=== PATIENT | male | born 1950 | race African-American/Black ===

== ENCOUNTER 2019-01-10 21:58 | Emergency (ER) | payer OTHER ==
[~2019-01-10 21:58] MED LIST: Magnevist 469MG/ML 20 ML VIAL ONE
--- NOTE | 2019-01-10 23:41 | RAD ---
Exam: 1 view abdomen HISTORY: Evaluate PEG tube placement FINDINGS: Atherosclerosis of the aorta. Normal cardiac silhouette. Visualized lung parenchyma suggest s chronic change There is opacification of the stomach with contrast administered via a percutaneous gastric feeding t ube which appears be appropriately positioned. Vascular stent is noted IMPRESSION: Appropriate positioning of a percutaneous gastric feeding tube with resultant contrast op acification of the stomach Transcribed Date/Time: 01/10/2019 11:56 PM
== END 2019-01-11 02:10 ==
LOC: ERS 21:58
DX: Z71.1 Person with feared health complaint in whom no diagnosis is made (principal); I12.9 Hypertensive chronic kidney disease with stage 1 through stage 4 chronic kidney disease, or unspecified chronic kidney disease; N18.9 Chronic kidney disease, unspecified; K21.9 Gastro-esophageal reflux disease without esophagitis; M19.90 Unspecified osteoarthritis, unspecified site; E03.9 Hypothyroidism, unspecified; E78.5 Hyperlipidemia, unspecified; E78.00 Pure hypercholesterolemia, unspecified; F20.9 Schizophrenia, unspecified; Z79.899 Other long term (current) drug therapy; Z79.01 Long term (current) use of anticoagulants
CPT/HCPCS: 74018; A9579

== ENCOUNTER 2019-02-10 09:17 | Inpatient (IN) | payer OTHER ==
--- NOTE | 2019-02-10 10:11 | RAD ---
Abdomen one view HISTORY: PICC replacement. COMPARISON: 01/10/2019. FINDINGS: Radiopaque feeding catheter overlies the left upper quadrant. Contrast material is present within the gastric fundus and immediately adjacent to the internal balloon. There is gaseous distention of the colon. Some contrast material at the hepatic flexure of the colon. Consistent with contrast placement from last night. Vascular stent over the left iliac vessels. Findings were called to Dr. Leo in the emergency department at 1005 hours.
--- NOTE | 2019-02-10 11:22 | CT ---
CT abdomen and pelvis noncontrast HISTORY: Malpositioned and repositioning of peg tube. COMPARISON: [place] CT from 02/09/2019. FINDINGS: Mild atelectasis at each lung base. Prominent calcification throughout the arterial structu res. Left iliac artery stent. Contrast material within the stomach and throughout the bowel. No evidence of bowel obstruction. Left upper quadrant percutaneous feeding catheter extends into the abdomen with the retention balloon intact. A small amount of radiopaque contrast is within the tract surrounding the catheter in the ant erior abdominal wall. Adjacent hemostasis clips noted. Hyperdense stones within the gallbladder lumen. No free air or free fluid within the abdomen. Lack of contrast limits evaluation of the soft tissues. Urinary bladder decompressed by a Rowe catheter. Large area of ulceration posterior to the sacrum. Pagetoid changes of the pelvis. IMPRESSION: Left upper quadrant percutaneous feeding catheter is now in good position. Small amount o f contrast along the tract of the anterior abdominal wall may be related to recent injection with previous malposition. Cholelithiasis. Atherosclerosis. Findings were called to Dr. Leo in the emergency department at 1110 hours. Code CR.
--- NOTE | 2019-02-10 13:08 | RAD ---
XR Chest 1 View Portable HISTORY: Concern for CHF COMPARISON: None FINDINGS: The heart size is normal. The lungs are without focal areas of consolidation, pneumothorax or pleural effusions. There is a right subclavian central venous catheter with tip in the projection of the cavoatrial junction. There is elevation of the left hemidiaphragm with minimal adjacent atelectatic change. IMPRESSION: No radiographic evidence of acute cardiopulmonary process.
[2019-02-10 13:40] LABS: Anion Gap 10 mmol/L (10-20); BUN (Urea Nitrogen) 14 mg/dL (8.4-25.7); Calc. Creatinine Clearance 0 mL/min (70-130); Calcium 8.3 mg/dL (7.8-10.44); Carbon Dioxide 24 mmol/L (23-31); Chloride 103 mmol/L (98-107); Estimated GFR-MDRD 82; Glucose 84 mg/dL (80-115); Sodium 133 mmol/L (136-145)
--- NOTE | 2019-02-10 13:50 | HP ---
HISTORY OF PRESENT ILLNESS: Mr. Romero is a 68-year-old black man. He was transferred to this facility from another facility because of hyponatremia. Initially, the patient went to another facility with complaint of abdominal pain , was transferred here. He was noticed to have malfunction in the gastrostomy tube. The tube was fixed by the ER physician. He was later noticed to have a low serum sodium, for which the patient is being admitted. The patient cannot give any information. History is obtained from the nurses and also his medical record. He is currently under police custody. He has some degree of altered mental status. He is not coherent at this time. PAST MEDICAL HISTORY: He is known to have a history of hypertension, hyperlipidemia, chronic kidney disease, gastroesophageal reflux disease, peripheral vascular disease, and hypothyroidism. PAST SURGICAL HISTORY: Remarkable for bilateral below-knee amputation and also he has a G-tube placement. PSYCHIATRIC HISTORY: Remarkable for schizophrenia. SOCIAL HISTORY: His social history is not available at this time. His smoking and drinking habit and drug use history is not available. MEDICATIONS: Prior to admission, he was on; 1. Amlodipine. 2. Atorvastatin. 3. Carvedilol. 4. Plavix. 5. Ferrous sulfate. 6. Fluoxetine. 7. Lactulose. 8. Lisinopril. 9. Osmolite. 10. Ranitidine. 11. Multivitamin. 12. Bactrim DS. 13. Cyanocobalamin. REVIEW OF SYSTEMS: Cannot be obtained as the patient cannot cooperate. PHYSICAL EXAMINATION: GENERAL: At the current time, he is alert, responsive, and not cooperating. VITAL SIGNS: His latest vital signs show a temperature of 98.2, pulse rate 71, respiratory rate 18, and blood pressure 112/61. HEENT: His head is normocephalic and atraumatic. Both his pupils are equal and reactive. Ears and nose are normal. His oral mucosa is dry. However, as mentioned earlier, he has a G-tube. We could not see his pharyngeal area. NECK: Supple. There is no distention of the jugular vein. No lymphadenopathy felt. Thyroid gland not palpable. There is no carotid bruit. CHEST: Symmetrical with regular S1 and S2. LUNGS: Clear. ABDOMEN: Soft. Bowel sounds decreased. There is a G-tube in place. He has bilateral BKA stump wounds and also he has some inguinal wounds and also sacral decubitus. NEUROLOGIC: He moves all extremities. LABORATORY DATA: There is no labs available at this time in this facility. ASSESSMENT AND PLAN: This is a 68-year-old black man with history of schizophrenia, hypertension, hyperlipidemia, chronic kidney disease, gastroesophageal reflux disease, peripheral vascular disease, and hypothyroidism, who is being admitted because of hyponatremia. It is very difficult at this time to assess his hyponatremia. He does have some edema in the stump. We will check his chest x-ray to exclude congestive heart failure. We will give him low-dose normal saline and at this time, in view of his history of the chronic kidney disease, which we do not know the baseline, urine lytes may not be accurate. We will consult Nephrology for further aid for better input. The patient will be admitted to the medical floor. We will check his electrolyte and resume his medications later. Job ID: [id number] MTDD
[2019-02-10 13:58] LABS: Free T4 (Free Thyroxine) 0.91 ng/dL (0.70-1.48); Thyroid Stimulating Hormone 0.9887 uIU/mL (0.35-4.94)
[2019-02-10 14:23] LABS: Bilirubin Negative (Negative); Blood, Urine Negative (Negative); Clarity Turbid (Clear); Glucose, Urine (Dipstick) Normal (Negative); Leukocyte 500 Leu/uL (Negative); Nitrite Negative (Negative); Protein, Urine (Dipstick) 30 mg/dL (Neg-Trace); Squamous Epithelial None Seen HPF (0-3); Urobilinogen Normal mg/dL (Less than 2); WBC/HPF Greater than 50 HPF (0-3); Yeast-Budding 2+ HPF (None Seen)
[2019-02-10 14:30] LABS: RBC/HPF 0-3 HPF (0-3)
[2019-02-10 14:31] LABS: Bacteria/HPF 2+ HPF (None Seen)
[2019-02-10] MEDS: Sodium Chloride 0.9% 1,000 ML IV SCH (16:32)
--- NOTE | 2019-02-10 23:07 | CON ---
DATE OF CONSULTATION: 02/10/2019 CONSULTING PHYSICIAN: Tali Villaseñor MD REASON FOR CONSULTATION: Hyponatremia. REASON FOR ADMISSION: Abdominal pain. HISTORY OF PRESENT ILLNESS: This is a 68-year-old male with history of hypertension, hyperlipidemia, CKD, came to the hospital with above complaints and was found to have hyponatremia. Nephrology was consulted. No fever or chills. No nausea. The patient is not able to have a good conversation. PAST MEDICAL HISTORY: Positive for hypertension, hyperlipidemia, CKD, GERD, peripheral vascular disease, and hypothyroidism. PAST SURGICAL HISTORY: Bilateral below-knee amputation, and G-tube. HOME MEDICATIONS: Reviewed. ALLERGIES: NO KNOWN DRUG ALLERGIES. SOCIAL HISTORY: No smoking, alcohol, or illicit drug abuse. FAMILY HISTORY: No history of kidney disease. REVIEW OF SYSTEMS: Could not be obtained. PHYSICAL EXAMINATION: GENERAL: This is a cachectic male, in no apparent distress. VITAL SIGNS: Temperature 97.7, pulse 70, respiratory rate 18, blood pressure 115/75. HEENT: Atraumatic, normocephalic. NECK: Supple. CV: S1, S2 heard. RESPIRATORY: Clear. GI: Abdomen is soft. MUSCULOSKELETAL: No edema. DERMATOLOGIC: Decubitus present. NEUROLOGICAL: Confused. LABORATORY DATA: Sodium is 133, potassium 4.0, BUN is 14, and creatinine is 1.08. ASSESSMENT AND PLAN: 1. Hyponatremia. Continue hydration. 2. Edema, controlled. 3. History of hypertension. 4. Plan to continue on IV fluids and monitor labs. We will follow. Thank you for the consult. Job ID: [id number]
[2019-02-11 06:31] LABS: Anion Gap 12 mmol/L (10-20); BUN (Urea Nitrogen) 11 mg/dL (8.4-25.7); Calc. Creatinine Clearance 55 mL/min (70-130); Calcium 7.9 mg/dL (7.8-10.44); Carbon Dioxide 21 mmol/L (23-31); Chloride 106 mmol/L (98-107); Estimated GFR-MDRD Greater than 90; Sodium 135 mmol/L (136-145)
[2019-02-11 06:46] LABS: Glucose 57 mg/dL (80-115)
[2019-02-11] MEDS: Sodium Chloride 0.9% 1,000 ML IV SCH ×2 (08:32→23:54)
[2019-02-11] MEDS ORDERED: Prevnar 13-Val Conj/PF 0.5 ML SYRINGE IM ONE (09:00)
[2019-02-11] MEDS ORDERED: FLU VACC TS2019-20(65YR UP)/PF 180 MCG/0.5 ML SYRINGE IM ONE (09:00)
[2019-02-11] MEDS ORDERED: GASTROGRAFIN 30 ML BOT ONE (16:40)
--- NOTE | 2019-02-11 16:51 | PRG ---
DATE OF SERVICE: 02/11/2019 SUBJECTIVE: Patient was seen and examined at bedside and overnight events noted. Patient denies any shortness of breath or chest pain or palpitation. No history of nausea or vomiting or diarrhea or fever or chills or cramps. OBJECTIVE: GENERAL: This is a cachectic male, in no apparent distress. VITAL SIGNS: Temperature 98.1. Heart rate 94. Respiratory rate 18. Blood pressure 159/69. HEENT: Atraumatic, normocephalic. Oral mucosa is moist NECK: Supple. CARDIOVASCULAR: S1, S2 heard. Rate and rhythm regular. RESPIRATORY: Clear to auscultation. GASTROINTESTINAL: Abdomen is soft. MUSCULOSKELETAL: No tenderness. No edema. DERMATOLOGIC: No skin rash. NEUROLOGIC: Alert and awake and oriented X3. No focal neurologic deficits. Moving all the extremities. PSYCHIATRIC: Mood and affect normal. LABORATORY DATA: Sodium 135, creatinine is 0.7. ASSESSMENT AND PLAN: 1. Hyponatremia, better with hydration. 2. Edema, controlled. 3. Hypertension. 4. Anemia of chronic disease. 5. Weak appetite. 6. Failure to thrive. 7. Continue to maintain adequate hydration. I will sign off. Please call back with any questions. Monitor sodium. Job ID: [id number]
--- NOTE | 2019-02-11 16:58 | RAD ---
ABDOMEN ONE VIEW: HISTORY: PEG tube check. FINDINGS: Contrast appears to opacify the stomach via a percutaneous gastric feeding tube. Additional contrast is noted in small bowel loops and scattered throughout the colon, likely from previous injection of contrast on 02/10/2019. Redemonstration of a vascular stent. IMPRESSION: Contrast opacifying the percutaneous endoscopic gastrostomy tube as described above. Transcribed Date/Time: 02/11/2019 5:51 PM
[2019-02-11 17:12] VITALS: BMI 48.8
--- NOTE | 2019-02-11 18:49 | PDOC.HOSPP ---
- Subjective Encounter Date: 02/11/19 Encounter Time: 13:00 Subjective: The patient says he doesn't feel good, unable to states what is bothering him but says he feels discomfort. Denies chest pain, denies shortness of breath. PEG tube noted to be leaking. trauma director called from [facility], states that tube has leaked and been infected multiple times and requested that a new PEG tube be placed at a different site. GI was contacted and tube was thought to be too small and changed to a larger tube. Recommended not removing PEG tube since this would cause a hole to form. - Objective Vital Signs & Weight: Vital Signs (12 hours) Temp Pulse Resp BP Pulse Ox 02/11/19 16:00 97.8 F 99 18 181/68 H 98 02/11/19 12:00 98.0 F 98 20 156/68 H 97 02/11/19 08:00 98.1 F 94 18 159/69 H 97 Weight Admit Weight 89 lb 15.178 oz Weight 89 lb 15.178 oz I&O: 02/10/19 02/11/19 02/12/19 06:59 06:59 06:59 Intake Total 550 Output Total 500 500 Balance 50 -500 Result Diagrams: 02/11/19 05:45 Additional Labs: Accuchecks 02/11/19 02/11/19 12:01 07:23 POC Glucose 93 92 Hospitalist ROS - Review of Systems Constitutional: denies: fever, chills Cardiovascular: denies: chest pain, palpitations - Medication Medications: Active Medications Generic Name Dose Route Start Last Admin Trade Name Freq PRN Reason Stop Dose Admin Sodium Chloride 1,000 mls @ 50 mls/hr 02/10/19 13:00 02/11/19 08:32 Normal Saline 0.9% IV 1,000 mls .Q20H KENNY Administration - Exam General Appearance: NAD, awake alert General - other findings: moaning Eye: PERRL, anicteric sclera ENT: normocephalic atraumatic, no oropharyngeal lesions Neck: supple, no JVD Heart: RRR, no murmur, no gallops, no rubs Respiratory: CTAB, no wheezes, no rales, no ronchi Gastrointestinal: soft, non-tender, non-distended Gastrointestinal - other findings: PEG tube noted to be leaking serous fluid Extremities: no cyanosis, no clubbing, no edema Extremities - other findings: bilateral above the knee amputations Skin: normal turgor, no lesions, no rashes Neurological: normal sensation to touch Musculoskeletal: normal tone, normal strength, no muscle wasting Hosp A/P - Plan This is 68 year old male with GERD, hypertension, CKD who presented with PEG tube malfunction, s/p changing in the ER, patient admitted for hyponatremia PEG tube leaking - patient had tube changed in the ER, however was still leaking, therefore changed to a large tube this afternoon - X ray shows contrast in the area, will monitor PEG tube function overnight Possible UTI -UA shows 500 leukocyte esterase, will send urine culture and give a dose of bactrim empirically Hyponatremia - improved, sodium up to 135 - continue tube feeds PVD s/p bilateral AKA - will consult general surgery since bone appears to be protruding from ulcer Dispo: likely d/c tomorrow
[2019-02-11] MEDS: Sulfamethoxazole/Trimethoprim 160 MG in Dextrose 5% in Water 250 ML IVPB SCH (21:31)
[2019-02-11] MEDS ORDERED: Morphine 2 MG/ML SYRINGE SLOW IVP SCH (23:30)
[2019-02-12 05:36] LABS: Mean Corpuscular HGB CONC 30.7 g/dL (32.0-36.0); Mean Corpuscular Hemoglobin 28.2 pg (27.0-31.0); Mean Corpuscular Volume 91.8 fL (78.0-98.0); Platelet Count 257 thou/uL (130-400); Red Blood Cell (RBC) Count 2.85 mill/uL (4.70-6.10); White Blood Cell (WBC) Count 4.9 thou/uL (4.8-10.8)
[2019-02-12 05:59] LABS: Anion Gap 12 mmol/L (10-20); BUN (Urea Nitrogen) 5 mg/dL (8.4-25.7); Calc. Creatinine Clearance 65 mL/min (70-130); Carbon Dioxide 20 mmol/L (23-31); Chloride 108 mmol/L (98-107); Estimated GFR-MDRD Greater than 90; Glucose 73 mg/dL (80-115); Potassium 3.5 mmol/L (3.5-5.1); Sodium 136 mmol/L (136-145)
--- NOTE | 2019-02-12 07:48 | CON ---
DATE OF CONSULTATION: 02/11/2019 REASON FOR CONSULTATION: Request for PEG replacement. HISTORY OF PRESENT ILLNESS: Mr. Romero is a 68-year-old with history of hypertension, chronic kidney disease, hyperlipidemia, who was transferred from [facility] for requested replacement of a PEG tube. Apparently, that leaks a lot around it and it has had to be replaced several times because it gets clogged. The hospitalist tells me that the medical oncology physician at the custodial requested that we take out the PEG and put a new PEG in a different spot. Apparently, there has maybe been some history of infections related to the PEG tube site. Presently, the PEG that is in place is a 16-Malawian, apparently replaced by the emergency room doctor in [place] before he was sent here. The patient is unable to add any history. PAST MEDICAL HISTORY: 1. Hypertension. 2. Hyperlipidemia. 3. Chronic kidney disease. 4. Reflux. 5. Peripheral vascular disease. 6. Hypothyroidism. Reviewing some of the custodial records that has been sent. He has a history of dementia, he has decubitus ulcers as well, history of depression, history of anemia, and blindness. MEDICATIONS: 1. Carvedilol. 2. Plavix. 3. B12. 4. Ferrous sulfate. 5. Fluoxetine. 6. Lactulose. 7. Lisinopril. 8. Morphine. 9. Osmolite. 10. Ranitidine. 11. Sulfamethoxazole. 12. Vitamin C. SOCIAL HISTORY: He is incarcerated. PSYCHIATRIC HISTORY: Schizophrenia. PAST SURGICAL HISTORY: 1. Bilateral knee amputations. 2. NG tube placement. REVIEW OF SYSTEMS: Unable to be obtained. PRESENT MEDICATIONS: Normal saline at 50 an hour. PHYSICAL EXAMINATION: GENERAL: The patient is contracted. He has decubitus ulcers. He has malnutrition with temporal wasting and muscle wasting. VITAL SIGNS: Temperature is 98, pulse is 98, blood pressure is 155/68. HEENT: Oropharynx without lesions. NECK: Supple without adenopathy. LUNGS: Clear. HEART: Regular rhythm without clicks or murmurs. ABDOMEN: Soft and nontender. The PEG tube site with a very small 16-Malawian PEG coming out of the tube that has bubbles draining around, but no pus. There is no evidence of infection or discharge or abscess. EXTREMITIES: Bilateral BKA. LABORATORY DATA: Sodium 135, potassium 4, BUN and creatinine 11 and 0.72, glucose 57 to 84. Outside labs from 02/10: Albumin was 2.3, calcium 8, alkaline phosphatase 86, AST and ALT 10 and 14, globulin 3.8, CK-MB 2.5. White count 6, hemoglobin 7.5, and platelet count 238. KUB from 02/09 at the outside hospital shows PEG tube to be in good position, fundus of the stomach, that was at an outside facility. CAT scan here on 02/10/2019 shows atelectasis, prominent vascular calcifications. Left iliac artery stent, contrast material in the stomach and throughout the bowel without evidence of obstruction. PEG tube is in proper placement in the stomach. ASSESSMENT: The percutaneous endoscopic gastrostomy tube has had 2 issues. One is complains of multiple malfunctions, becoming clogged, that is an issue of how to use by that staff that uses it. The other possibly could be that with its replacement status, it could be sliding into the pylorus, giving the impression of obstruction. This could be remedied by placing a tape bumper to keep the PEG from sliding into the plastic bumper into the gastric lumen and into the duodenum and also by being used appropriately by the nurses and people were caring for this patient. The next issue has been drainage around the percutaneous endoscopic gastrostomy tube site, that is not going to probably be any better with placing a new percutaneous endoscopic gastrostomy tube as he is very malnourished and has poor wound healing as evidenced by his multiple decubitus. If this percutaneous endoscopic gastrostomy tube is removed the tract, probably will not close, and subsequently replaced percutaneous endoscopic gastrostomy will have the same issues with lack of skin around the tract. My recommendation would be to replace the percutaneous endoscopic gastrostomy with a larger caliber replacement percutaneous endoscopic gastrostomy 20-Malawian and hopefully there would be less drainage with that. If that does not work, then surgical consultation will need to be obtained. RECOMMENDATIONS: Replace the PEG tube with a 20-Malawian PEG, confirm placement with x-ray and return him to his previous care site. Job ID: [id number]
--- NOTE | 2019-02-12 08:18 | OP ---
DATE OF PROCEDURE: 02/11/2019 PROCEDURE PERFORMED: PEG tube replacement. The 16-Kinyarwanda PEG tube, which was in the patient's PEG tube was desufflated, 20 mL of water. The PEG tube was gently removed from the tract, which seems to be patent without any inflammation, pus, or discharge. The new 20-Kinyarwanda tube was placed into it. Air was insufflated through the PEG and this seems to be auscultated in the stomach. The PEG tube balloon was inflated with 20 mL of sterile water, then brought back towards the anterior gastric wall. The bumper was then affixed to the abdomen, it was at 3 cm. PLAN: We will get an x-ray to confirm a PEG tube placement to make sure it is not in the colon or out of place. The PEG tube was affixed to the anterior abdominal wall by the bumper and tape to prevent PEG migration through the bumper. Job ID: [id number]
[2019-02-12] MEDS: Sulfamethoxazole/Trimethoprim 160 MG in Dextrose 5% in Water 250 ML IVPB SCH ×2 (08:52→21:49)
[2019-02-12] MEDS ORDERED: NACL IV SCH (09:45)
[2019-02-12] MEDS ORDERED: DEXTROSE IV SCH (09:45)
[2019-02-12] MEDS ORDERED: Pancrelipase DR 12000 1 CAP FS PRN (11:52)
[2019-02-12] MEDS ORDERED: Sodium Bicarbonate Tab 325 MG TAB PER TUBE PRN (11:52)
--- NOTE | 2019-02-12 15:23 | PDOC.HOSPP ---
- Subjective Encounter Date: 02/12/19 Encounter Time: 15:21 Subjective: The patient complains of some chest pain in the middle of his chest, states that it is dull. He says his chest pain started last night. He has some shortness of breath. No abdominal discomfort. Tube feeds had not been initiated yet per nursing staff but were started this afternoon. Surgical consult for stumps pending Urine culture positive for E coli overnight. - Objective Vital Signs & Weight: Vital Signs (12 hours) Temp Pulse Resp BP Pulse Ox 02/12/19 11:35 98.3 F 84 20 144/76 H 95 02/12/19 07:43 97.9 F 85 22 H 169/72 H 97 Weight Admit Weight 89 lb 15.178 oz Weight 89 lb 15.178 oz I&O: 02/11/19 02/12/19 02/13/19 06:59 06:59 06:59 Intake Total 550 890 30 Output Total 500 1150 Balance 50 -260 30 Result Diagrams: 02/12/19 05:18 02/12/19 05:18 Additional Labs: Accuchecks 02/12/19 02/12/19 02/11/19 11:42 04:00 19:33 POC Glucose 109 82 82 02/11/19 16:28 POC Glucose 80 Hospitalist ROS - Review of Systems Constitutional: denies: fever, chills Respiratory: denies: cough, dry - Medication Medications: Active Medications Generic Name Dose Route Start Last Admin Trade Name Freq PRN Reason Stop Dose Admin Sodium Chloride 1,000 mls @ 50 mls/hr 02/10/19 13:00 02/11/19 23:54 Normal Saline 0.9% IV 1,000 mls .Q20H KENNY Administration Trimethoprim/Sulfamethoxazole 250 mls @ 250 mls/hr 02/11/19 21:00 02/12/19 08 :52 160 mg/ Dextrose/Water IVPB 250 mls 0900,2100 KENNY Administration - Exam General Appearance: NAD, awake alert General - other findings: patient is laying in bed with arms handcuffed together Eye: PERRL, anicteric sclera Eye - other findings: some discharge coming from eyes ENT: normocephalic atraumatic, no oropharyngeal lesions Neck: supple, symmetric, no JVD Heart: RRR, no murmur, no gallops, no rubs Respiratory: CTAB, no wheezes, no rales, no ronchi Respiratory - other findings: no tenderness on chest Gastrointestinal - other findings: PEg tube with no leaking evident Extremities - other findings: pain when trying to lift up his arms Skin: normal turgor, no lesions, no rashes Neurological: cranial nerve grossly intact, normal sensation to touch, no focal deficits, no new deficit Musculoskeletal: normal tone, normal strength, no muscle wasting Psychiatric: normal affect, normal behavior, A&O x 3, oriented to person Hosp A/P - Plan This is 68 year old male with GERD, hypertension, CKD who presented with PEG tube malfunction, s/p changing in the ER, patient admitted for hyponatremia PEG tube leaking - resolved - patient had tube changed in the ER, however was still leaking, therefore changed to a large tube 1/6 - tube feeds started today, no leaking evident today Chest pain - will check EKG and troponins - could be positional due to how his arms are contracted across his chest from the cuffs E coli UTI -UA shows 500 leukocyte esterase, urine culture showing E coli - continue bactrim Hyponatremia -resolved - continue tube feeds PVD s/p bilateral AKA - general surgery consulted Dispo: troponins/ekg/surg consult
--- NOTE | 2019-02-12 18:03 | CON ---
DATE OF CONSULTATION: HISTORY OF PRESENT ILLNESS: Alberto Romero is a 68-year-old male, who is incarcerated. He was transferred here for dysfunction of his PEG tube. Dr. Salazar has exchanged his PEG tube and given his recommendations. I have been asked to see him regarding bilateral [id number] amputations with protruding femur. The patient is not a reliable historian. During this hospitalization, CAT scan has been obtained and abdominal x-ray has been obtained. The patient is noted to have gallstones, but no acute abdominal changes and NG tube to be in good position. He is not a reliable historian. ALLERGIES: LISTED NONE. MEDICATIONS: 1. Amlodipine. 2. Atorvastatin. 3. Carvedilol. 4. Plavix. 5. Ferrous sulfate. 6. Fluoxetine. 7. Lactulose. 8. Lisinopril. 9. Osmolite. 10. Ranitidine. 11. Multiple vitamins. 12. Bactrim. PAST MEDICAL HISTORY: 1. Hypertension. 2. Hyperlipidemia. 3. Chronic kidney disease. 4. GERD. 5. PVD. 6. Hypothyroidism. 7. Stroke. 8. Dysphagia. 9. PEG tube dependent. PAST SURGICAL HISTORY: 1. Bilateral [id number] amputations. 2. G-tube placement. PHYSICAL EXAMINATION: GENERAL: The patient is not reliably communicative. He does not answer questions appropriately. He has apparent arm contractures. He has a PEG tube in place. VITAL SIGNS: Temperature 98 degrees, heart rate 91, and blood pressure 170/84. LUNGS: Clear to auscultation. CARDIAC: Regular rate and rhythm without murmur or gallop. ABDOMEN: Soft and nontender. PEG tube in place. EXTREMITIES: Bilateral AKAs with protruding femur on both sides. No evidence of infection. No cellulitis. LABORATORY DATA: White count 4 and hemoglobin 8. Basic metabolic profile unremarkable. BUN 12 and creatinine 0.6. ASSESSMENT AND PLAN: The patient has chronically protruding femurs from both [id number] amputation stumps. This has been present for a long time, probably several years. There is no indication for immediate intervention. I will not plan that. I will see him as needed. He can be referred back to [facility], where he is incarcerated, and this can be addressed in the future should he develop problems. I am sure they have already evaluated this. I do not see a need for immediate intervention in this hospitalization. Job ID: [id number]
[2019-02-12] MEDS: Multivit, Chewable SF 1 TAB PER TUBE SCH (21:48)
[2019-02-12] MEDS: Famotidine 20 MG TAB PER TUBE SCH (21:49)
[2019-02-12] MEDS: Carvedilol 6.25 MG TAB PER TUBE SCH (21:49)
[2019-02-12] MEDS: Ascorbic Acid 500 mg Chewable Tablet PER TUBE SCH (21:49)
[2019-02-13] MEDS: Sodium Chloride 0.9% 1,000 ML IV SCH ×2 (02:20→21:12)
[2019-02-13] MEDS: NUTRITIONAL SUPPLEMENT PER TUBE SCH (02:21)
[2019-02-13 05:46] LABS: Hemoglobin 8.5 g/dL (14.0-18.0); Mean Corpuscular HGB CONC 31.4 g/dL (32.0-36.0); Mean Corpuscular Hemoglobin 28.6 pg (27.0-31.0); Mean Corpuscular Volume 91.2 fL (78.0-98.0); Mean Platelet Volume 6.7 fL (7.4-10.4); Platelet Count 282 thou/uL (130-400); RBC Distribution Width 14.9 % (11.5-14.5); Red Blood Cell (RBC) Count 2.98 mill/uL (4.70-6.10); White Blood Cell (WBC) Count 6.9 thou/uL (4.8-10.8)
[2019-02-13] MEDS: Famotidine 20 MG TAB PER TUBE SCH ×2 (08:46→20:13)
[2019-02-13] MEDS: Carvedilol 6.25 MG TAB PER TUBE SCH (08:46)
[2019-02-13] MEDS: Lisinopril 20 MG TAB PER TUBE SCH (08:46)
[2019-02-13] MEDS: Clopidogrel Bisulfate 75 MG TAB PER TUBE SCH (08:47)
[2019-02-13] MEDS: FLUoxetine HCl 20 MG CAP PER TUBE SCH (08:47)
[2019-02-13] MEDS: Ascorbic Acid 500 mg Chewable Tablet PER TUBE SCH ×2 (08:47→20:14)
[2019-02-13] MEDS: Sulfamethoxazole/Trimethoprim 160 MG in Dextrose 5% in Water 250 ML IVPB SCH (08:56)
[2019-02-13] MEDS ORDERED: Clopidogrel Bisulfate 75 MG TAB PER TUBE SCH (09:00)
[2019-02-13] MEDS ORDERED: Non-Formulary Item 1 EACH (Lisinopril [Lisinopril] 40 MG) PER TUBE SCH (09:00)
[2019-02-13] MEDS ORDERED: FLUoxetine HCl 20 MG CAP PER TUBE SCH (09:00)
[2019-02-13] MEDS ORDERED: Amlodipine 5 MG TAB PER TUBE SCH ×2 (09:00)
[2019-02-13] MEDS ORDERED: Amoxicillin/Potassium Clav 875 MG TAB PO SCH (10:15)
--- NOTE | 2019-02-13 11:55 | RAD ---
XR Shoulder Rt 2 View HISTORY: Right shoulder pain FINDINGS: No fracture or dislocation is identified.
--- NOTE | 2019-02-13 11:56 | RAD ---
XR Shoulder Lt 2 View HISTORY: Left shoulder pain FINDINGS: No fracture or dislocation is identified. Degenerative changes are present in the acromioclavicular j oint.
--- NOTE | 2019-02-13 13:01 | RAD ---
LEFT WRIST FRONTAL VIEW: 02/13/2019 PROVIDED CLINICAL HISTORY: Pain. FINDINGS: Shackle overlies and obscures the majority of the left wrist, limiting evaluation. Evaluation is also limited due to lack of an orthogonal view. No gross abnormality is apparent. IMPRESSION: Limited examination. POS: OFF
--- NOTE | 2019-02-13 14:58 | PDOC.HOSPP ---
- Subjective Encounter Date: 02/13/19 Encounter Time: 11:30 Subjective: THe patient is doing better. No chest pain, abdominal pain, palpitations, shortness of breath. REpeat EKG today showing persistent atrial fibrillation. Patient does not know if he has afib in the past or not. Unable to get hold of [facility]. THe patient complains of pain when I try to move his left wrist. Per penitentiary guards, patients arms always seem contracted. He complains of pain in his left shoulder. - Objective Vital Signs & Weight: Vital Signs (12 hours) Temp Pulse Resp BP BP Pulse Ox 02/13/19 11:30 97.7 F 80 20 150/77 H 100 02/13/19 10:55 70 20 159/73 H 100 02/13/19 08:47 104 H 195/96 H 02/13/19 08:46 195/96 H 02/13/19 08:42 98.3 F 104 H 20 195/96 H 97 02/13/19 08:41 97 Weight Admit Weight 89 lb 15.178 oz Weight 89 lb 15.178 oz I&O: 02/12/19 02/13/19 02/14/19 06:59 06:59 06:59 Intake Total 890 1190 60 Output Total 1150 1050 Balance -260 140 60 Result Diagrams: 02/13/19 05:23 02/12/19 05:18 Hospitalist ROS - Review of Systems Constitutional: denies: fever, chills Cardiovascular: denies: chest pain, palpitations - Medication Medications: Active Medications Generic Name Dose Route Start Last Admin Trade Name Karon PRN Reason Stop Dose Admin Amlodipine Besylate 5 mg 02/13/19 09:00 02/13/19 08:47 Norvasc PER TUBE 5 mg DAILY KENNY Administration Ascorbic Acid 500 mg 02/12/19 21:00 02/13/19 08:47 Vitamin C PER TUBE 500 mg BID KENNY Administration Carvedilol 6.25 mg 02/12/19 21:00 02/13/19 08:46 Coreg PER TUBE 6.25 mg BID KENNY Administration Clopidogrel Bisulfate 75 mg 02/13/19 09:00 02/13/19 08:47 Plavix PER TUBE 75 mg DAILY KENNY Administration Famotidine 20 mg 02/12/19 21:00 02/13/19 08:46 Pepcid PER TUBE 20 mg BID KENNY Administration Ferrous Sulfate 220 mg 02/12/19 15:00 02/13/19 14:47 Ferrous Sulfate PER TUBE 220 mg TID KENNY Administration Fluoxetine HCl 20 mg 02/13/19 09:00 02/13/19 08:47 Prozac PER TUBE 20 mg DAILY KENNY Administration Sodium Chloride 1,000 mls @ 50 mls/hr 02/10/19 13:00 02/13/19 02:20 Normal Saline 0.9% IV 1,000 mls .Q20H KENNY Administration Lactulose 30 gm 02/12/19 15:00 02/13/19 14:18 Lactulose PER TUBE Not Given TID KENNY Lisinopril 40 mg 02/13/19 09:00 02/13/19 08:46 Zestril PER TUBE 40 mg DAILY KENNY Administration Multivitamins 1 tab 02/12/19 21:00 02/12/19 21:48 Multivit, Chewable Sf PER TUBE 1 tab HS KENNY Administration - Exam General Appearance: NAD, awake alert Eye: PERRL, anicteric sclera ENT: normocephalic atraumatic, no oropharyngeal lesions Neck: supple, symmetric, no JVD, no thyromegaly Heart: RRR, no murmur, no gallops, no rubs Respiratory: CTAB, no wheezes, no rales, no ronchi Gastrointestinal: soft, non-tender Gastrointestinal - other findings: PEG tube in place with no leaking evident Extremities: no cyanosis, no clubbing, no edema Skin: normal turgor, no lesions, no rashes Neurological: cranial nerve grossly intact, normal sensation to touch, no focal deficits, no new deficit Hosp A/P - Plan Shoulder Xray right and left: no acute fracture or dislocation Left Wrist X ray: limited examination due to shackles, but no acute abnormality This is 68 year old male with GERD, hypertension, CKD who presented with PEG tube malfunction, s/p changing in the ER, patient admitted for hyponatremia PEG tube leaking - resolved - patient had tube changed in the ER, however was still leaking, therefore changed to a large tube 1/6 - tube feeds started with no issues Chest pain - resolved - troponins negative times three. Will transfer to telemetry due to afib on EKG - New onset atrial fibrillation - rate controlled. Appears to be persistent on two consecutive EKG. ECHO ordered , cardiology consult who recommended transferring to telemetry E coli UTI -UA shows 500 leukocyte esterase, urine culture showing E coli resistant to bactrim - switch to augmentin day 1 Shoulder pain/wrist pain - no acute abnormality on X ray - likely due to awkward arm positioning - will order PT Hyponatremia -resolved - continue tube feeds PVD s/p bilateral AKA - general surgery consulted, no further recommendations or procedures necessary Dispo: transfer to telemetry for monitoring of afib, cardiology consult
[2019-02-13] MEDS ORDERED: Carvedilol 6.25 MG TAB PO SCH (19:00)
[2019-02-13] MEDS: Multivit, Chewable SF 1 TAB PER TUBE SCH (20:13)
[2019-02-13] MEDS: Atorvastatin Calcium 20 MG TAB PER TUBE SCH (20:13)
[2019-02-13] MEDS: Amoxicillin/Potassium Clav 875 MG TAB PO SCH (20:14)
--- NOTE | 2019-02-13 21:29 | CON ---
DATE OF CONSULTATION: HISTORY OF PRESENT ILLNESS: Alberto Romero is a 68-year-old black male from the retirement in [place], where he apparently is on row. He was transferred here because of hyponatremia and malfunction of his gastrostomy tube. The patient cannot give any adequate history. He has been noted on medical floor to have rapid heart rate at times. EKG was obtained, which is interpreted by the computer as atrial fibrillation. However, it appears that he is in sinus rhythm with very frequent PACs and at times wandering atrial pacemaker. He has been transferred to telemetry for better monitoring of this. Rhythm strip continued to show sinus rhythm and at times wandering atrial pacemaker. PAST MEDICAL HISTORY: Hypertension, chronic kidney disease, GERD, peripheral vascular disease, hypothyroidism, hyperlipidemia. CURRENT MEDICATIONS: 1. Amlodipine 5 mg daily. 2. Augmentin. 3. Atorvastatin 20 mg daily. 4. Carvedilol 6.25 b.i.d. 5. Plavix 75 daily. 6. Pepcid 20 mg b.i.d. 7. Ferrous sulfate 220 mg t.i.d. 8. Prozac 20 mg daily. 9. Lactulose 30 t.i.d. 10. Lisinopril 40 mg daily. 11. Bactrim IV. ALLERGIES: NONE. PAST SURGICAL HISTORY: PEG tube placement and bilateral [id number] amputation with protruding femur from both stumps. SOCIAL HISTORY: Unobtainable. FAMILY HISTORY: Unobtainable. REVIEW OF SYSTEMS: Unobtainable. PHYSICAL EXAMINATION: VITAL SIGNS: Blood pressure 182/91, pulse of 99. HEENT: PERRL. CHEST: Clear. CARDIAC: S1 and S2 normal without any S3, S4, or murmurs. ABDOMEN: Normal bowel sounds without tenderness. EXTREMITIES: Revealed bilateral [id number] amputations with protruding femur from both stumps. NEUROLOGICAL: The patient will move extremities, but does not answer questions except with yes or no answers. LABORATORY DATA: EKG reveals sinus rhythm with wandering atrial pacemaker. Echocardiogram revealed study to be technically difficult. Ejection fraction was 55% to 60% with evidence of diastolic dysfunction, moderate mitral regurgitation , moderate aortic stenosis, moderate aortic regurgitation, and mild tricuspid regurgitation. Hemoglobin 8.5, hematocrit 27.2, white count 6900. Sodium 136, potassium 3.5, chloride 108, carbon dioxide 20, BUN 5, creatinine 0.61. Cardiac enzymes were unremarkable. His sodium on admission was 133. IMPRESSION: 1. Normal sinus rhythm and at times wandering atrial pacemaker. 2. Malfunctioning PEG tube, which has been resolved. 3. Hyponatremia, which is resolved. 4. Hypertension. 5. Hyperlipidemia. 6. History of schizophrenia. 7. History of gastroesophageal reflux disease. 8. History of peripheral vascular disease. 9. Hypothyroidism. PLAN: With patient's current blood pressure with systolics frequently in the 170s to 180s and heart rates in the 90s to 100s, I will double his carvedilol dose from 6.25 b.i.d. to 12.5 b.i.d. The dose of carvedilol will be gradually increased and some of his other antihypertensives may need to be reduced. The patient will be monitored. I will follow the patient with you. Job ID: [id number] MTDD
[2019-02-13] MEDS ORDERED: Amlodipine 5 MG TAB PO SCH (23:45)
[2019-02-14] MEDS: Sodium Chloride 0.9% 1,000 ML IV SCH ×2 (04:09→21:24)
[2019-02-14 05:11] LABS: Anion Gap 8 mmol/L (10-20); BUN (Urea Nitrogen) 21 mg/dL (8.4-25.7); Calc. Creatinine Clearance 70 mL/min (70-130); Calcium 7.9 mg/dL (7.8-10.44); Carbon Dioxide 24 mmol/L (23-31); Chloride 109 mmol/L (98-107); Estimated GFR-MDRD Greater than 90; Glucose 130 mg/dL (80-115); Magnesium 1.8 mg/dL (1.6-2.6); Potassium 3.6 mmol/L (3.5-5.1); Sodium 137 mmol/L (136-145)
[2019-02-14] MEDS ORDERED: Carvedilol 6.25 MG TAB PO SCH (08:00)
[2019-02-14] MEDS: Amoxicillin/Potassium Clav 875 MG TAB PO SCH (10:14)
[2019-02-14] MEDS: Famotidine 20 MG TAB PER TUBE SCH (10:17)
[2019-02-14] MEDS: Lisinopril 20 MG TAB PER TUBE SCH (10:17)
[2019-02-14] MEDS: FLUoxetine HCl 20 MG CAP PER TUBE SCH ×2 (10:18→10:22)
[2019-02-14] MEDS: Ascorbic Acid 500 mg Chewable Tablet PER TUBE SCH ×2 (10:18→21:23)
[2019-02-14] MEDS: Amlodipine 10 MG TAB PO SCH (10:19)
[2019-02-14] MEDS: Clopidogrel Bisulfate 75 MG TAB PER TUBE SCH (10:20)
--- NOTE | 2019-02-14 18:52 | PDOC.HOSPP ---
- Subjective Encounter Date: 02/14/19 Encounter Time: 11:00 Subjective: The patient today complains of pain all over. On telemetry patient noted to have converted to sinus in the afternoon. Cardiology thought this was wandering atrial pacemaker. Tube feeds noted to be leaking again. Per GI, nothing that can be done, patient has poor wound healing around that site. Patient later vomited, tube feeds were placed on hold temporarily. Restarted. - Objective Vital Signs & Weight: Vital Signs (12 hours) Temp Pulse Resp BP BP Pulse Ox 02/14/19 11:08 98.6 F 80 26 H 143/79 H 100 02/14/19 10:19 174/91 H 02/14/19 10:18 174/91 H 02/14/19 10:17 174/91 H 02/14/19 08:00 100 02/14/19 07:41 98.5 F 95 16 174/91 H 100 Weight Admit Weight 89 lb 15.178 oz Weight 97 lb I&O: 02/13/19 02/14/19 02/15/19 06:59 06:59 06:59 Intake Total 1190 2401 Output Total 1050 1450 950 Balance 140 951 -950 Result Diagrams: 02/13/19 05:23 02/14/19 04:03 Hospitalist ROS - Review of Systems Eyes: denies: vision change, redness Respiratory: denies: pleuritic pain Cardiovascular: denies: chest pain - Medication Medications: Active Medications Generic Name Dose Route Start Last Admin Trade Name Freq PRN Reason Stop Dose Admin Amlodipine Besylate 10 mg 02/14/19 09:00 02/14/19 10:19 Norvasc PO 10 mg DAILY KENNY Administration Ascorbic Acid 500 mg 02/12/19 21:00 02/14/19 10:18 Vitamin C PER TUBE 500 mg BID KENNY Administration Atorvastatin Calcium 20 mg 02/13/19 21:00 02/13/19 20:13 Lipitor PER TUBE 20 mg HS KENNY Administration Clopidogrel Bisulfate 75 mg 02/13/19 09:00 02/14/19 10:20 Plavix PER TUBE 75 mg DAILY KENNY Administration Ferrous Sulfate 220 mg 02/12/19 15:00 02/14/19 15:54 Ferrous Sulfate PER TUBE 220 mg TID KENNY Administration Sodium Chloride 1,000 mls @ 50 mls/hr 02/10/19 13:00 02/14/19 04:09 Normal Saline 0.9% IV 1,000 mls .Q20H KENNY Administration Lactulose 30 gm 02/12/19 15:00 02/14/19 15:55 Lactulose PER TUBE Not Given TID KENNY Lisinopril 40 mg 02/13/19 09:00 02/14/19 10:17 Zestril PER TUBE 40 mg DAILY KENNY Administration Multivitamins 1 tab 02/12/19 21:00 02/13/19 20:13 Multivit, Chewable Sf PER TUBE 1 tab HS KENNY Administration - Exam General Appearance: NAD, awake alert Eye: PERRL, anicteric sclera ENT: normocephalic atraumatic, no oropharyngeal lesions Neck: supple, symmetric, no JVD Heart: RRR, no murmur, no gallops, no rubs Respiratory: CTAB, no wheezes, no rales, no ronchi Gastrointestinal: soft, non-distended, normal bowel sounds Gastrointestinal - other findings: PEG tube with slight leaking Extremities: no cyanosis, no clubbing, no edema Skin: normal turgor, no lesions, no rashes Neurological: cranial nerve grossly intact, normal sensation to touch, no focal deficits, no new deficit Hosp A/P - Plan Shoulder Xray right and left: no acute fracture or dislocation Left Wrist X ray: limited examination due to shackles, but no acute abnormality ECHO: moderate MR, , and AR. EF 55-60% with diastolic dysfunction This is 68 year old male with GERD, hypertension, CKD who presented with PEG tube malfunction, s/p changing in the ER, patient admitted for hyponatremia PEG tube leaking - tube was changed to a larger size on 02/11. Had some leaking today, per GI no further interventions needed New onset atrial fibrillation versus wandering atrial pacemaker- resolved - rate controlled. Coreg increased to 12.5 mg bid by cardiology. EKG converted to sinus now - ECHO shows moderate MR, AR, and . Hypertensive urgency - BP 170's - coreg increased to 12.5 mg bid - on lisinopril 40 mg, amlodipine 10 mg Chest pain - resolved - troponins negative times three. E coli UTI -UA shows 500 leukocyte esterase, urine culture showing E coli resistant to bactrim - on augmentin day 2 Shoulder pain/wrist pain - no acute abnormality on X ray - likely due to awkward arm positioning -PT stated no interventoin Hyponatremia -resolved - continue tube feeds PVD s/p bilateral AKA - general surgery consulted, no further recommendations or procedures necessary Dispo: try to d/c tomorrow
[2019-02-14] MEDS: Famotidine 40 MG/5 ML Oral Suspension PER TUBE SCH (21:22)
[2019-02-14] MEDS: Multivit, Chewable SF 1 TAB PER TUBE SCH (21:23)
[2019-02-14] MEDS: Carvedilol 6.25 MG TAB PO SCH (21:23)
[2019-02-14] MEDS: Amoxicillin/Potassium Clav 875 MG TAB PER TUBE SCH (21:23)
[2019-02-14] MEDS: Atorvastatin Calcium 20 MG TAB PER TUBE SCH (21:23)
[2019-02-15] MEDS: Sodium Chloride 0.9% 1,000 ML IV SCH (04:16)
--- NOTE | 2019-02-15 07:45 | PRG ---
DATE OF SERVICE: 02/14/2019 SUBJECTIVE: I was asked by Mr. Romero' physician to re-evaluate him, and the nurses reported he had thrown up some today, and there was a little bit of discharge around his PEG tube. OBJECTIVE: VITAL SIGNS: Temperature is 98. He has been afebrile. Pulse is 80. Blood pressure is 143/79. GENERAL: He is very debilitated, cachectic with multiple decubitus ulcers as noted above. He has contractures. ABDOMEN: Soft, slightly protuberant. PEG tube site is warm, clean, and dry. There is no exudate. LABORATORY DATA: Electrolytes are normal; sodium 137, potassium 3.6, BUN and creatinine 21 and 0.6. RADIOLOGY: I reviewed the CAT scan with Radiology on admission to make sure they did not think in any way the colon was compromised by the PEG tube, which had been placed elsewhere. They did not feel that. ASSESSMENT: 1. PEG tube drainage has diminished markedly with changing the caliber to a 20-Italian PEG. There is still going to be some drainage around the PEG tube site because he has poor wound healing as evidenced by his overall condition, and I do not think it has the ability to stop completely. Removing the PEG and replacing it in another site is not going to alleviate the problem, it is just going to move the problem to another site, and the PEG tube tracts there may not close. 2. I would anticipate he may have emesis every once in a while as he is immobile and is apt to get obstipated and has some mild distention of the small bowel at baseline. RECOMMENDATIONS: 1. Continue good skin care at the PEG tube site. Continue tube feeding as able. 2. Could use Reglan if needed to help intestinal motility. I would keep him on a laxative regimen, so he does not become obstipated. This time, we will sign off. Again, if I can be of any further assistance, please do not hesitate to contact me. I would note that lactulose may be contraindicated as it may lead to more distention, and it maybe better to use something like MiraLAX. Job ID: [id number]
[2019-02-15] MEDS ORDERED: FLUoxetine HCl 20 MG/5 ML UDCUP PER TUBE SCH (09:00)
[2019-02-15] MEDS ORDERED: Polyethylene Glycol 3350 17 GM Packet PO PRN (09:16)
[2019-02-15] MEDS: Carvedilol 6.25 MG TAB PO SCH ×3 (10:15→20:57)
[2019-02-15] MEDS: Ascorbic Acid 500 mg Chewable Tablet PER TUBE SCH ×2 (10:16→20:56)
[2019-02-15] MEDS: Clopidogrel Bisulfate 75 MG TAB PER TUBE SCH (10:16)
[2019-02-15] MEDS: Lisinopril 20 MG TAB PER TUBE SCH (10:16)
[2019-02-15] MEDS: Amoxicillin/Potassium Clav 875 MG TAB PER TUBE SCH ×2 (10:16→20:56)
[2019-02-15] MEDS: Amlodipine 10 MG TAB PO SCH (10:16)
[2019-02-15] MEDS: Famotidine 40 MG/5 ML Oral Suspension PER TUBE SCH ×2 (10:17→20:57)
--- NOTE | 2019-02-15 12:25 | DIS ---
DATE OF ADMISSION: 02/10/2019 DATE OF DISCHARGE: 02/15/2019 DISCHARGE DIAGNOSES: PEG tube malfunction, wandering atrial pacemaker with tachycardia, moderate aortic stenosis, moderate aortic regurgitation, moderate mitral regurgitation, hypertensive urgency, constipation, peripheral vascular disease, status post bilateral AKA with chronic wound, anemia. CONSULTATIONS: Dr. Evelina Villasenor with Nephrology, Roe Salazar with GI, Keagan Soler with General Surgery, Gerson Hendricks with Cardiology. PROCEDURES: PEG tube replacement on 02/11/2019. BRIEF HISTORY OF PRESENT ILLNESS: This is a 68-year-old male with a past medical history of peripheral vascular disease, status post bilateral AKA, hypertension, schizophrenia, GERD, who had presented to the emergency room with abdominal pain. The patient was noted to have a malfunction in his G-tube. 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 The patient has a history of repeated infections from his PEG tube and was requesting that a new PEG tube be placed in a new site. The tube was fixed by the ER physician. However, the patient was noted to have a low sodium of 133 on the , therefore he was admitted. HOSPITAL COURSE: Hyponatremia: The patient had presented with a sodium of 133. Nephrology was consulted from the ER. The patient was given IV fluids and his hyponatremia resolved. PEG tube malfunction: The patient had his tube adjusted by the ER physician. However, he continued to have persistent leakage coming from his PEG tube. Due to the medical services manager's request to have the PEG tube placed at a new site, GI was consulted. GI replaced the PEG tube with a larger PEG tube that was 16-Yakut in size. There was significant reduction and leaking after placement of a larger size, tube however it leaked again on 02/14. He also vomited and tube feeds were held temporarily. They have been restarted with no recurrence of his leaking. Per GI, they did not recommend placing the PEG tube at a different site because the patient has a history of poor wound healing and they felt that this would create a hole that would not allow his wound to heal. The patient should have Palliative Care consultation considered when he goes back to the halfway since this issue is most likely to be recurrent and chronic. Peripheral vascular disease, status post AKA: The patient was noted to have bone protruding from both of his wound stumps. Wound care recommended General Surgery consultation. General Surgery stated there was no indication for immediate intervention. This can be followed up as an outpatient. The patient should have wound care see him as an outpatient. Wandering atrial pacemaker: Patient at one point was noted to complain of chest pain on the 7th. EKG had shown atrial fibrillation with RVR. Troponins were negative x3. Echocardiogram was done on the 8th, which showed diastolic dysfunction with moderate MR, moderate and moderate AR. Repeat EKG on the 8th showed persistent atrial fibrillation with RVR. Cardiology was consulted. The patient 's Coreg was increased to 12.5 mg p.o. t.i.d. The patient eventually converted to sinus rhythm on telemetry. The patient will continue on his statin and will be discharged with a higher dose of Coreg. Constipation: The patient was on lactulose as an outpatient. However, given that this may cause worsening abdominal distention, this was changed to MiraLAX on the day of discharge. E coli UTI: UA showed 500 leukocyte esterase, greater than 50 white blood cells with turbid urine. Urine culture showed E coli and yeast. The patient was initially started on Bactrim. However, urine culture was noted to be resistant to Bactrim. He was switched to Augmentin on the . The patient will be discharged with 4 more days of Augmentin to complete a 7-day course of antibiotics. The patient's catheter was changed on discharge. Shoulder pain/wrist pain: The patient is noted to have chronic contractures in his upper extremities. He has extreme pain when you try to lift up his left and right wrist. Shoulder x-rays and wrist x-rays showed no acute fracture. PT saw the patient, did not feel that any therapy was indicated. The patient can be medicated with Tylenol p.r.n. as needed. DISCHARGE PHYSICAL EXAMINATION: ' VITAL SIGNS: Temperature 97.9, heart rate 72, respiratory rate 21, O2 saturations 100% on room air, blood pressure 144/67. GENERAL: The patient is bed-bound. He holds his right upper extremities contracted against his chest. He does not talk much at baseline. CVS: Regular rate and rhythm with no murmurs, rubs, or gallops. LUNGS: Clear to auscultation bilaterally. ABDOMEN: The patient has a PEG tube in place. There is no evidence of leaking currently. His abdomen is mildly tender to palpation. EXTREMITIES: The patient has bilateral AKA with protruding femur. The patient also has a Rowe catheter in place with some mild discharge. This will be changed. PERTINENT LABORATORY DATA: CBC on 02/13: Shows a white count of 6.9, hemoglobin 8.5, hematocrit 27.2, platelet count 282. BMP on 02/14: Shows a sodium of 137. Troponin I: Was less than 0.010, 0.033, 0.010. Free T4: 0.91. TSH: 0.9887. UA 02/10: Shows turbid urine with 30 protein, trace ketones, 500 leukocyte esterase, greater than 50 white blood cells, 2+ bacteria, 2+ yeast. PERTINENT IMAGING: Abdominal x-ray on 02/10: Shows gas distention of the colon. Vascular stent over the left iliac vessels. CT abdomen and pelvis on 02/10: Shows cholelithiasis. Atherosclerosis. Left upper quadrant percutaneous feeding catheter in good position. Chest x-ray on 02/10: No acute process. Abdominal x-ray on 02/11: Contrast opacifying the percutaneous endoscopic gastrostomy tube as described above. Shoulder x-ray on 02/13: Shows no acute fracture. Degenerative changes in the AC joint. Wrist x-ray on the left: Limited examination. No gross abnormalities apparent. Shoulder x-ray on the right on 02/13: No fracture or dislocation. Echocardiogram 02/13: EF 55% to 60%, diastolic dysfunction, moderate MR, moderate , moderate AR, mild TR. DISCHARGE CONDITION: Stable to his halfway facility. DIET: Tube feeding diet. ACTIVITY: The patient is at baseline bed-bound. DISCHARGE MEDICATIONS: 1. Amlodipine 10 mg p.o. daily. 2. Coreg 12.5 mg per tube t.i.d. 3. Pancrelipase 73235 units capsule per protocol p.r.n. 4. MiraLAX 17 g p.o. daily p.r.n. 5. Ranitidine 150 mg per tube b.i.d. 6. Augmentin 875 mg per tube q.12. 7. Multivitamin one tablet per tube at bedtime. 8. Lisinopril 40 mg per tube daily. 9. Fluoxetine 20 mg per tube daily. 10. Iron sulfate 220 mg per tube t.i.d. 11. Vitamin B12 1000 mcg IM q.month. 12. Plavix 75 mg per tube daily. 13. Atorvastatin 20 mg per tube daily. 14. Vitamin C 500 mg per tube b.i.d. 15. Osmolite 237 mL liquid one can per tube q.4 hours. DISCHARGE INSTRUCTIONS: The patient to follow up with PCP in a week. Consider further workup of anemia. The patient should consider outpatient Palliative Care Hospice consultation due to recurrent problems with PEG and poor wound healing. The patient should also have wound care followup as an outpatient. Job ID: [id number] MTDD
--- NOTE | 2019-02-15 15:18 | EKG ---
Test Reason : Blood Pressure : / mmHG Vent. Rate : 092 BPM Atrial Rate : 075 BPM P-R Int : 000 ms QRS Dur : 104 ms QT Int : 348 ms P-R-T Axes : 000 071 -82 degrees QTc Int : 430 ms Atrial fibrillation with premature ventricular or aberrantly conducted complexes Nonspecific ST and T wave abnormality Abnormal ECG No previous ECGs available Confirmed by DR. Kiel ISRAEL ([id number]) on 02/15/2019 3:17:52 PM Referred By: GAGANDEEP Confirmed By:DR. Kiel ISRAEL
--- NOTE | 2019-02-15 15:20 | EKG ---
Test Reason : Blood Pressure : / mmHG Vent. Rate : 106 BPM Atrial Rate : 064 BPM P-R Int : 000 ms QRS Dur : 106 ms QT Int : 362 ms P-R-T Axes : 000 054 -62 degrees QTc Int : 480 ms Atrial fibrillation with rapid ventricular response with premature ventricular or aberrantly conducte d complexes Septal infarct , age undetermined Cannot rule out Inferior infarct , age undetermined Abnormal ECG No previous ECGs available Confirmed by DR. Kiel ISRAEL ([id number]) on 02/15/2019 3:19:51 PM Referred By: [facility] Confirmed By:DR. Kiel ISRAEL
[2019-02-15 16:12] VITALS: BP 179/83; TEMP 98.1
[2019-02-15] MEDS: Atorvastatin Calcium 20 MG TAB PER TUBE SCH (20:56)
[2019-02-15] MEDS: Multivit, Chewable SF 1 TAB PER TUBE SCH (20:58)
--- NOTE | 2019-02-18 04:07 | PQF ---
[employer] Worker Crystal Reports [employer] ARCHIE Mart ANGY DONIS [id number] [facility] [id number] CLINICAL DOCUMENTATION CLARIFICATION FORM: POST DISCHARGE Addendum to original discharge summary date: ____ Late entry note date: __ Date: 02/18/2019 ATTN: ANGY DONIS Please exercise your independent, professional judgment in responding to the clarification form. Clinical indicators are provided on the bottom of this form for your review Please check appropriate box(s): [ ] Protein Calorie Malnutrition: [ ] Mild [ ] Moderate [X ] Severe [ ] Other Malnutrition (please specify) __ [ ] Underweight without malnutrition [ ] Cachexia [ ] Other diagnosis [ ] Unable to determine In addition, please specify: Present on Admission (POA): [ ] Yes [ ] No [ ] Unable to determine CLINICAL INDICATORS - SIGNS / SYMPTOMS / LABS BMI - 52 cachetic - Documented in consult note on 02/10 by Charleen Cesar MD Edema - Documented in consult note on 02/10 by Charleen Cesar MD he has malnutrition with temporal wasting & muscle wasting - Documented in consult note on 02/11 by Roe Salazar very malnourished & evidenced by his multiple decubitus - Documented in consult note on 02/11 by Roe Salazar RISK FACTORS Hyponatremia Failure to thrive - Documented in PNs on 02/11 by Yissel Villasenor MD Anemia in Chronic disease - Documented in PNs on 02/11 by Yissel Villasenor MD TREATMENT: PEG tube replacement - OP report Continue Hydration - Documented in consult note on 02/10 by Charleen Cesar MD Patient plan to continue on IV fluids and monitor labs - Documented in consult note on 02/10 by Charleen Cesar MD Moderate Malnutrition (in acute illness) Energy Intake: <75% of estimated energy requirement for > 7 days Weight Loss: 1-2%/1 week; 5%/ 1 month; 7.5%/3 months Other: mild body fat loss; mild muscle mass loss; mild fluid accumulation; [employer] Worker Crystal Reports Winform ViewerSevere Malnutrition (in acute illness) Energy Intake: < 50% of estimated energy requirement for > 5 days Weight Loss: >1-2%/1 week; >5%/1 month; >7.5%/3 months Other: moderate body fat loss; moderate muscle mass loss; moderate- severe fluid accumulation; measurably reduced driver sales strength Moderate Malnutrition (in chronic illness) Energy Intake: <75% of estimated energy requirement for >1 month Weight Loss: 5%/1 month; 7.5%/3 months; 10%/6 months; 20%/1 year Other: mild body fat loss; mild muscle mass loss; mild fluid accumulation Severe Malnutrition (in chronic illness) Energy Intake: <75% of estimated energy requirement for >1 month Weight Loss: >5%/1 month; >7.5%/3 months; >10%/6 months; >20%/1 year Other: severe body fat loss; severe muscle mass loss; severe fluid accumulation ; measurably reduced driver sales strength (This form is maintained as a part of the permanent medical record) 2014 [employer] All Rights Reserved [email or web address] [not provided] BEATAD
--- NOTE | 2019-02-18 04:16 | PQF ---
SAP Rda Crystal Reports Winform ViewerARCHIE CHRISTIANSEN ANGY DONIS [id number] -B- [id number] CLINICAL DOCUMENTATION CLARIFICATION FORM: POST DISCHARGE Addendum to original discharge summary date: ____ Late entry note date: __ DATE: 02/18/2019 ATTN: ANGY DONIS Please exercise your independent, professional judgment in responding to the clarification form. Clinical indicators are provided on the bottom of this form for your review Please check appropriate box(s): [ ] Encephalopathy: Type: [X ] Acute [ ] Subacute [ ] Chronic Etiology: [ ] Hypertensive [ X ] Metabolic [ ] Toxic [ ] Other diagnosis [ ] Unable to determine In addition, please specify: Present on Admission (POA): [ ] Yes [ ] No [ ] Unable to determine For continuity of documentation, please document condition throughout progress notes and ischarge summary. Thank You. CLINICAL INDICATORS - SIGNS / SYMPTOMS / LABS hyponatremic to 124 - Documented in ED report pg#2 Altered Mental Status - Documented in H&P on 02/10 by Charleen Cesar being admitted for hyponatremia - Documented in H&P on 02/10 by Charleen Cesar hypotensive - Documented in H&P on 02/10 by Charleen Cesar confused - Documented in Consult note on 02/10 by Yissel Villasenor RISK FACTORS Hyponatremia - Documented in H&P on 02/10 by Charleen Cesar Failure to thrive - Documented in PNs on 02/11 by Yissel Villasenor MD Anemia in Chronic disease - Documented in PNs on 02/11 by Yissel Villasenor MD CKD HTN TREATMENTS: Continue Hydration - Documented in consult note on 02/10 by Charleen Cesar MD Patient plan to continue on IV fluids and monitor labs - Documented in consult note on 02/10 by Charleen Cesar MD [employer] Rda Crystal Reports Winform Viewer (This form is maintained as a part of the permanent medical record) 2014 [employer] All Rights Reserved [email or web address] [email or web address] [not provided] RANJITH
--- NOTE | 2019-02-20 17:46 | EKG ---
Test Reason : Blood Pressure : / mmHG Vent. Rate : 098 BPM Atrial Rate : 131 BPM P-R Int : 000 ms QRS Dur : 100 ms QT Int : 354 ms P-R-T Axes : 000 069 -62 degrees QTc Int : 451 ms Atrial fibrillation with premature ventricular or aberrantly conducted complexes Anterior infarct (cited on or before 13-FEB-2019) T wave abnormality, consider inferior ischemia Abnormal ECG When compared with ECG of 13-FEB-2019 09:14, Questionable change in initial forces of Anterior leads Confirmed by DR. Kiel ISRAEL ([id number]) on 02/20/2019 5:45:57 PM Referred By: JIL Confirmed By:DR. Kiel ISRAEL
[2019-03-09] MEDS ORDERED: Cyanocobalamin 1000 MCG/ML VIAL IM SCH (09:00)
== END 2019-02-15 22:35 | disposition federal hospital, planned readmission (88) | DRG 393 ==
LOC: ERS 09:17 → T4-B 14:28 → OBSVTOIN 14:28 → EEVIPCON 14:28 → 2NO 02-13 17:29
PROVIDERS: ADMIT Hospitalist; ATTEND Hospitalist
PROC: 0DP6XUZ Removal of Feeding Device from Stomach, External Approach (ICD-10-PCS; principal; 2019-02-10)
PROC: 0DH63UZ Insertion of Feeding Device into Stomach, Percutaneous Approach (ICD-10-PCS; 2019-02-10)
DX: K94.23 Gastrostomy malfunction (principal); E43 Unspecified severe protein-calorie malnutrition; G93.41 Metabolic encephalopathy; I48.19 Other persistent atrial fibrillation; E87.1 Hypo-osmolality and hyponatremia; N39.0 Urinary tract infection, site not specified; Z68.43 Body mass index [BMI] 50.0-59.9, adult; I12.9 Hypertensive chronic kidney disease with stage 1 through stage 4 chronic kidney disease, or unspecified chronic kidney disease; N18.9 Chronic kidney disease, unspecified; K21.9 Gastro-esophageal reflux disease without esophagitis; E03.9 Hypothyroidism, unspecified; I73.9 Peripheral vascular disease, unspecified; F20.9 Schizophrenia, unspecified; E78.5 Hyperlipidemia, unspecified; I16.0 Hypertensive urgency; I35.0 Nonrheumatic aortic (valve) stenosis; I35.1 Nonrheumatic aortic (valve) insufficiency; D64.9 Anemia, unspecified; I49.8 Other specified cardiac arrhythmias; B96.20 Unspecified Escherichia coli [E. coli] as the cause of diseases classified elsewhere; K59.00 Constipation, unspecified; R62.7 Adult failure to thrive; Z79.02 Long term (current) use of antithrombotics/antiplatelets; Z79.899 Other long term (current) drug therapy; Z89.512 Acquired absence of left leg below knee; Z89.511 Acquired absence of right leg below knee
CPT/HCPCS: 36415; 36416; 71045; 74018; 74176; 80048; 81003; 81015; 83735; 84439; 84443; 84484; 85027; 87077; 87086; 87186; 93005; 93010; 93306; B4087; J2270; J3490; J7070; Q9963